=== PATIENT | male | born 1945 | race Caucasian/White ===

== ENCOUNTER → 2019-07-10 | Outpatient (CLI) | payer OTHER, BC | LOC: SJCVCIMAG 09:01 | DX: I65.23 Occlusion and stenosis of bilateral carotid arteries (principal); I25.10 Atherosclerotic heart disease of native coronary artery without angina pectoris; I25.2 Old myocardial infarction; Z95.1 Presence of aortocoronary bypass graft ==

== ENCOUNTER → 2020-04-08 | Outpatient (CLI) | payer OTHER, BC | LOC: SJCVC 11:36 | PROVIDERS: ATTEND Internal Medicine Cardiovascular Disease | DX: I25.10 Atherosclerotic heart disease of native coronary artery without angina pectoris (principal); I10 Essential (primary) hypertension; E78.00 Pure hypercholesterolemia, unspecified; I42.9 Cardiomyopathy, unspecified; I25.5 Ischemic cardiomyopathy; Z87.891 Personal history of nicotine dependence; Z79.899 Other long term (current) drug therapy; Z88.6 Allergy status to analgesic agent ==

== ENCOUNTER → 2020-09-09 | Outpatient (CLI) | payer OTHER, BC | LOC: SJCVCIMAG 09:27 | PROVIDERS: ATTEND Internal Medicine Cardiovascular Disease | DX: I25.10 Atherosclerotic heart disease of native coronary artery without angina pectoris (principal); I25.2 Old myocardial infarction; Z98.61 Coronary angioplasty status ==